=== PATIENT | female | born 1995 | race Caucasian/White ===

== ENCOUNTER 2022-01-21 09:05 | Emergency (ER) | payer BC, SELFPAY ==
[2022-01-21 09:35] VITALS: BP 126/73; PULSE 73; RESP 18; TEMP 37.3; O2SAT 99
--- NOTE | 2022-01-21 09:51 | ED.URI ---
HPI - URI/Sore Throat General Chief Complaint: Upper Respiratory Infection Stated Complaint: Sinus Congestion/Sore Throat Time Seen by Provider: 01/21/22 09:53 Source: patient and RN notes reviewed Mode of arrival: ambulatory Limitations: no limitations History of Present Illness HPI Narrative: 26-year-old female presented for complaint of sinus pressure and congestion and cannot pull in enough air with left sore throat and lymph node swelling. Endorses nausea and vomiting of watery phlegm yesterday. She has a history of asthma. She has been using her albuterol inhaler more frequently as needed. She was smoking a pack per day and now is vaping. Endorses taking unknown antibiotic for busted blood vessel in the right ear. endorses feeling dizzy and hot when moving too quickly. Denies wheezing, fever, chills. Vaccinated for Covid, not vaccinated flu. MD elicited complaint: cough Related Data Allergies Allergy/AdvReac Type Severity Reaction Status Date / Time ibuprofen Allergy Swelling Verified 01/21/22 09:46 of Lip/Tongue/Throat Review of Systems Review of Systems: CONSTITUTIONAL: Denies malaise, chills, sweats, fever EYES: Denies visual changes, redness, or discharge ENT: Reports rhinorrhea, congestion, sinus pain, otalgia, sore throat CARDIOVASCULAR: Denies chest pain, palpitations, edema RESPIRATORY: Reports cough, post nasal drainage, dyspnea GASTROINTESTINAL: Denies abdominal pain, nausea, vomiting, diarrhea SKIN: Denies rash or itching MUSCULOSKELETAL: denies myalgia NEUROLOGIC: Denies headache PMFSH Past Medical History Medical History Allergic asthma Deviated septum ZHAO (generalized anxiety disorder) PTSD (post-traumatic stress disorder) Surgical History Surgical History H/O nasal septoplasty Family History Family History Mother Hypertension Social History Social History Social History: Single Years smoked: 4 Smoking status: Current every day smoker Tobacco type: cigarettes Second hand tobacco smoke exposure: Yes Alcohol intake: current Alcohol use details: Rarely Substance use: current Substance use type: marijuana Additional living arrangements comments: Pt lives with her fiance Gender identity (if verbalized by the patient): Female Exam Narrative: GENERAL: Ill-appearing, nontoxic HEAD: Normocephalic EYES: conjunctivae clear ENT: Mucous membranes moist. TM pearly doll with dull light reflex bilaterally; no tragal tenderness. Oropharynx erythematous without lesions or exudate, tonsils absent, no drooling, no hoarseness, no trismus, uvula midline. No tripod positioning, muffled voice, soft palate or pharyngeal wall bulging NECK: Supple. No lymphadenopathy CHEST: Clear to auscultation, breath sounds equal. No wheezing, rhonchi, rales, or stridor. No respiratory distress, speaks in full sentences. HEART: Regular rate and rhythm. No murmur heard. SKIN: Warm, dry, no rash. NEURO: Alert and oriented x3. PSYCH: Normal mood and affect Course Course Emergency Course: Patient is aware of diagnosis, understands and agrees to treatment plan. Anticipatory guidance given. Patient agrees to follow-up as directed and is aware of reasons to seek care at the emergency department. Portions of this record may have been created with voice recognition software Level of Care: Express Care Visit Vital Signs Vital signs: Vital Signs Temperature 99.1 F 01/21/22 09:35 Pulse Rate 73 01/21/22 09:35 Respiratory Rate 18 01/21/22 09:35 Blood Pressure 126/73 01/21/22 09:35 Pulse Oximetry 99 01/21/22 09:35 Temperature 99.1 F 01/21/22 09:35 Pulse Rate 73 01/21/22 09:35 Respiratory Rate 18 01/21/22 09:35 Blood Pressure 12
== END 2022-01-21 10:08 | disposition home or self-care (01) ==
PROVIDERS: Emergency Provider Nurse Practitioner Family; PCP Family Medicine
DX: J30.2 Other seasonal allergic rhinitis (principal); J45.909 Unspecified asthma, uncomplicated; F17.290 Nicotine dependence, other tobacco product, uncomplicated
CPT/HCPCS: 99213; G0463

== ENCOUNTER 2022-07-04 11:55 | Emergency (ER) | payer BC, SELFPAY ==
[2022-07-04 12:07] VITALS: BP 122/60; PULSE 75; RESP 20; TEMP 36.5; O2SAT 99
--- NOTE | 2022-07-04 12:53 | ED.DIZZY ---
HPI - Dizziness General Chief Complaint: Dizziness Stated Complaint: nausous, lightheaded, abdominal pain Time Seen by Provider: 07/04/22 12:53 Source: patient, RN notes reviewed and old records reviewed Mode of arrival: ambulatory Limitations: no limitations History of Present Illness HPI Narrative: 27 year old female who [facility] with complaints of feeling like she was going to pass out today at 0830, states became sweaty and felt like she was going to pass out, did not fall or loose consciousness. 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 Patient reports that she has been nauseated and also has had intermittent lower abdominal cramping for the past 2 weeks with feelings of dizziness. Patient denies any vomiting or diarrhea, reports no sore throat, headache, sinus congestion or drainage or any other symptoms. MD elicited complaint: dizziness, lightheadedness and other (nausea and some intermittent lower abdomen cramping.) Pertinent past history: other (7 weeks ) Related Data Allergies Allergy/AdvReac Type Severity Reaction Status Date / Time ibuprofen Allergy Swelling Verified 01/21/22 09:46 of Lip/Tongue/Throat Review of Systems Review of Systems: CONSTITUTIONAL: Denies fever, chills, or sweats. EYES: Denies visual changes, redness, or discharge. ENT: Denies rhinorrhea, congestion, sore throat, or otalgia. CARDIOVASCULAR: Denies chest pain, palpitations, or edema. RESPIRATORY: Denies cough or dyspnea. GASTROINTESTINAL: Denies abdominal pain,+ nausea,no vomiting, or diarrhea.Reports some lower abdomen cramping for 2 weeks intermittently GENITOURINARY: Denies dysuria or hematuria. SKIN: Denies rash or itching. MUSCULOSKELETAL: Denies back pain, joint pain, or myalgia. NEUROLOGIC: Denies headache, numbness, or weakness, positive for dizziness PSYCHIATRIC: Positive for anxiety or depression. [facility] Past Medical History Medical History (Updated 07/07/22 @ 12:11 by Romana Enamorado NP) Allergic asthma Anemia Deviated septum ZHAO (generalized anxiety disorder) PTSD (post-traumatic stress disorder) Surgical History Surgical History (Updated 07/07/22 @ 12:15 by Romana Eanmorado NP) H/O nasal septoplasty History of tonsillectomy and adenoidectomy Family History Family History Mother Hypertension Social History Social History Social History: Single Years smoked: 4 Smoking status: Current every day smoker Tobacco type: cigarettes Second hand tobacco smoke exposure: Yes Alcohol intake: current Alcohol use details: Rarely Substance use: current Substance use type: marijuana Additional living arrangements comments: Pt lives with her fiance Gender identity (if verbalized by the patient): Female Comments At time of signature, agree with nursing past medical, surgical, social and family history. There is no relevant family history pertinent to the presenting complaint Exam Narrative: GENERAL: Well-appearing, well-nourished, and in no acute distress. HEAD: Normocephalic, atraumatic. EYES: PERRLA and EOMI. ENT: Nares clear, no rhinorrhea or epistaxis. Mucous membranes moist. TM's normal with good light reflex, throat pink with no lesions tonsils absent NECK: Supple. no lymphadenopathy CHEST: Clear to auscultation. No respiratory distress.normal with good light reflex, throat pink with no lesions or swelling tonsils absent HEART: Regular rate and rhythm. No murmur heard. Normal peripheral pulses.SAO2 99% on room air ABDOMEN: Soft, nontender on palpation, nondistended, normal active bowel sounds.denies constipation or any diarrhea, no flank pain noted EXTREMITIES: Normal range of motion. No edema. SKIN: Warm, dry, no rash. NEURO: No focal deficits. Alert and oriented x3. Course Course Level of
[2022-07-04 13:08] VITALS: BP 122/70; PULSE 75
[2022-07-04 13:14] VITALS: BP 121/55; PULSE 79
[2022-07-04 13:20] VITALS: BP 124/70; PULSE 83
== END 2022-07-04 13:50 | disposition home or self-care (01) ==
PROVIDERS: Emergency Provider Registered Nurse; PCP Family Medicine
DX: O90.89 Other complications of the puerperium, not elsewhere classified (principal); R42 Dizziness and giddiness; O21.9 Vomiting of pregnancy, unspecified; Z3A.01 Less than 8 weeks gestation of pregnancy; O99.281 Endocrine, nutritional and metabolic diseases complicating pregnancy, first trimester; E86.0 Dehydration; O99.331 Smoking (tobacco) complicating pregnancy, first trimester; F17.210 Nicotine dependence, cigarettes, uncomplicated; O99.511 Diseases of the respiratory system complicating pregnancy, first trimester; J45.909 Unspecified asthma, uncomplicated
CPT/HCPCS: 81003; 81025; 99213; G0463

== ENCOUNTER 2023-02-26 22:29 | Inpatient (IN) | payer OTHER, SELFPAY ==
[2023-02-26 23:14] VITALS: BMI 32.7
[2023-02-26 23:15] LABS: Basophils Absolute Auto 0.1 K/mm3 (0.0-0.1); Basophils Percent Auto 0.3 % (0.2-1.2); Eosinophils Percent Auto 0.2 % (0-4.4); Hematocrit 42.2 % (37.0-47.0); Hemoglobin 14.2 g/dL (12.0-15.0); Immature Granulocyte Absolute 0.05 K/mm3 (0.00-0.031); Immature Granulocyte Percent A 0.3 % (0-0.5); Lymphocytes Absolute Auto 2.22 K/mm3 (0.9-3.2); Lymphocytes Percent Auto 13.1 % (18.3-44.2); Mean Corpuscular HGB Conc 33.6 g/dl (32-36); Mean Corpuscular Hemoglobin 29.4 pg (26-34); Mean Corpuscular Volume 87.4 fl (80-100); Mean Platelet Volume 10.9 fl (7.4-10.4); Monocytes Percent Auto 5.8 % (2.6-8.5); Neutrophils Absolute Auto 13.7 K/mm3 (1.3-6.7); Neutrophils Percent Auto 80.3 % (45.5-73.1); Platelet Count Result 241 k/mm3 (150-375); Red Blood Count 4.83 M/mm3 (4.2-5.4)
[2023-02-26 23:33] VITALS: BP 125/75; PULSE 64
[2023-02-26 23:38] VITALS: BP 139/82; PULSE 64
[2023-02-26 23:48] VITALS: BP 119/73; PULSE 64
[2023-02-26] MEDS: DINOPROSTONE 10 MG VAG INSERT VAGINAL (23:48)
[2023-02-26 23:50] VITALS: TEMP 36.3
[2023-02-27] VITALS (59 sets, daily range): BP systolic 75–147; BP diastolic 45–111; PULSE 47–176; RESP 14–20; TEMP 36.2–37.3; O2SAT 93–100
[2023-02-27] MEDS: ONDANSETRON INJ 4 MG/2 ML VIAL IV PUSH (00:25)
--- NOTE | 2023-02-27 01:08 | WPDANESEPPF ---
Anes - Initial Pre Proc Eval Procedure: Labor Epidural Date/Time: 02/27/23 01:08 Surgeon: Katie Hernandez MD Pre Op Diagnosis: Labor Pain Pre Op Diagnosis: IOL Patient Data Age: 27 Gender: F Height: 1.63 m Weight: 86.4 kg Last Vital Signs Temp 36.3 C L 02/26/23 23:50 Pulse 54 L 02/27/23 01:01 BP 136/80 02/27/23 01:01 Allergies Allergy/AdvReac Type Severity Reaction Status Date / Time ibuprofen Allergy Swelling Verified 02/20/23 12:34 of Lip/Tongue/Throat Home Medications Medication Instructions Recorded Confirmed Type prenat.vits,mindi,moh-nlqh-buoqn 1 tablet PO DAILY 02/20/23 02/20/23 History sertraline 50 mg tablet 50 mg PO DAILY 02/20/23 02/20/23 History albuterol sulfate 90 mcg/actuation 1 inh inhalation PRN 02/26/23 02/26/23 History aerosol inhaler (ProAir HFA) Laboratory Tests 02/26/23 23:10 WBC 17.0 H K/mm3 (4.5-10.0) RBC 4.83 M/mm3 (4.2-5.4) Hgb 14.2 g/dL (12.0-15.0) Hct 42.2 % (37.0-47.0) MCV 87.4 fl (80-100) MCH 29.4 pg (26-34) MCHC 33.6 g/dl (32-36) RDW 13.0 % (11.5-14.5) Plt Count 241 k/mm3 (150-375) MPV 10.9 H fl (7.4-10.4) Immature Gran % (Auto) 0.3 % (0-0.5) Neut % (Auto) 80.3 H % (45.5-73.1) Lymph % (Auto) 13.1 L % (18.3-44.2) [place] % (Auto) 5.8 % (2.6-8.5) Eos % (Auto) 0.2 % (0-4.4) Baso % (Auto) 0.3 % (0.2-1.2) Lymph # (Auto) 2.22 K/mm3 (0.9-3.2) [place] # (Auto) 1.0 H K/mm3 (0.1-0.6) Eos # (Auto) 0.0 K/mm3 (0-0.3) Baso # (Auto) 0.1 K/mm3 (0.0-0.1) Abs Immat Gran (auto) 0.05 H K/mm3 (0.00-0.031) Absolute Neuts (auto) 13.7 H K/mm3 (1.3-6.7) Absolute Nucleated RBC 0.0 K/mm3 (0.0-0.012) Nucleated RBC % 0.0 % (0.0-0.2) RPR Pending Blood Type A Positive Antibody Screen Negative Patient hx anesthesia problems: none Family hx anesthesia problems: none Results Review: All pre-operative results and documents have been reviewed as part of the pre-operative evaluation. [facility] Past Medical History Medical History Allergic asthma Anemia Deviated septum ZHAO (generalized anxiety disorder) PTSD (post-traumatic stress disorder) Surgical History Surgical History H/O nasal septoplasty History of tonsillectomy and adenoidectomy Family History Family History Mother Hypertension Arthritis Degenerative disc disease Depression Grandparent Skin cancer (melanoma) Arthritis Rosacea Father Arthritis Depression Social History Social History Social History: Single Years smoked: 4 Smoking status: Former smoker Tobacco type: cigarettes Second hand tobacco smoke exposure: No Smoking end date: 09/28/22 Alcohol intake: current Alcohol use details: Rarely Substance use: current Substance use type: marijuana Last use: 02/20/23 Lack of Transportation: No Lack of Food: Never True Current Housing: I Have Housing Concerned About Future Housing: No Difficulty Paying Gas/Electric Bills: No Difficulty Paying for Meds: No Currently Unemployed: No Education: High School Diploma/GED Difficulty w/ Childcare or Family Care: No Living arrangements: with family Additional living arrangements comments: Pt lives with her fiance Occupation/Education: unemployed Gender identity (if verbalized by the patient): Female Spiritual care concerns: No Anes - Eval Final PreProcedure Day of Procedure 02/27/23 01:08 Patient weight: normal Airway: Mallampati scale class II Neurological: alert and oriented ASA classification: II Emergent: no Anesthetic plan: proceed Anesthesia type and monitoring: regional epidural and standard monit
[2023-02-27] MEDS: LACTATED RINGERS 1,000 ML 125 ML IV CONT ×3 (01:55→06:40)
[2023-02-27] MEDS: PROMETHAZINE HCL 25 MG/ML AMPUL 12.5 MG IV PUSH (04:10)
--- NOTE | 2023-02-27 06:32 | PM.IMHP ---
H&P: HPI History of Present Illness Date/Time: 02/27/23 06:32 Chief Complaint: induction of labor Narrative: Linnea was a scheduled elective IOL at 0001 this am. uncomplicated except by asthma, anxiety on zoloft, and both of them CF carriers. Yesterday afternoon she presented for decreased FM and had a reactive NST and felt movement so chose to be DCed home and return. Cervidil was placed this am, but was pulled a couple hours later for minimal variability and late decels. They resolved but then returned. I called around 0600 for an update on my way in this am to be told there was again minimal variability and lates. Review of Systems Review of Systems: All systems reviewed & are unremarkable except as noted in HPI and below PMFSH Past Medical History Medical History Allergic asthma Anemia Deviated septum ZHAO (generalized anxiety disorder) PTSD (post-traumatic stress disorder) Surgical History Surgical History H/O nasal septoplasty History of tonsillectomy and adenoidectomy Family History Family History Mother Hypertension Arthritis Degenerative disc disease Depression Grandparent Skin cancer (melanoma) Arthritis Rosacea Father Arthritis Depression Social History Social History Social History: Single Years smoked: 4 Smoking status: Former smoker Tobacco type: cigarettes Second hand tobacco smoke exposure: No Smoking end date: 09/28/22 Alcohol intake: current Alcohol use details: Rarely Substance use: current Substance use type: marijuana Last use: 02/20/23 Lack of Transportation: No Lack of Food: Never True Current Housing: I Have Housing Concerned About Future Housing: No Difficulty Paying Gas/Electric Bills: No Difficulty Paying for Meds: No Currently Unemployed: No Education: High School Diploma/GED Difficulty w/ Childcare or Family Care: No Living arrangements: with family Additional living arrangements comments: Pt lives with her fiance Occupation/Education: unemployed Gender identity (if verbalized by the patient): Female Spiritual care concerns: No Meds Home Medications and Allergies Home Medications Medication Instructions Recorded Confirmed Type prenat.vits,mindi,och-uryh-loxne 1 tablet PO DAILY 02/20/23 02/20/23 History sertraline 50 mg tablet 50 mg PO DAILY 02/20/23 02/20/23 History albuterol sulfate 90 mcg/actuation 1 inh inhalation PRN 02/26/23 02/26/23 History aerosol inhaler (ProAir HFA) Allergies Allergy/AdvReac Type Severity Reaction Status Date / Time ibuprofen Allergy Swelling Verified 02/20/23 12:34 of Lip/Tongue/Throat Vital Signs Vital Signs - 24 hr 02/26/23 23:33 02/26/23 23:38 02/26/23 23:48 Temperature Pulse Rate 64 64 64 Blood Pressure 125/75 139/82 119/73 02/26/23 23:50 02/27/23 00:01 02/27/23 00:16 Temperature 97.3 F L Pulse Rate 176 H 56 L Blood Pressure 125/73 120/80 02/27/23 00:32 02/27/23 00:46 02/27/23 01:01 Temperature Pulse Rate 78 48 L 54 L Blood Pressure 118/53 L 125/68 136/80 02/27/23 01:16 02/27/23 01:31 02/27/23 01:46 Temperature Pulse Rate 57 L 47 L 58 L Blood Pressure 118/75 117/89 128/65 02/27/23 02:00 02/27/23 04:00 02/27/23 06:21 Temperature 97.1 F L 97.7 F 97.7 F Pulse Rate Blood Pressure Exam Const: General: no acute distress Resp: Effort & Inspection: normal respiratory effort Auscultation: clear to auscultation bilaterally Cardio: Rate: regular rate Rhythm: regular rhythm GI: GI Palp: Yes Soft to palpation Extrem: General: normal to inspection H&P: Results Labs Labs: Short CBC 02/26/23 Range/Units 23:10 WBC 17.0 H (4.5-10.0) K/mm3
--- NOTE | 2023-02-27 06:32 | WPDANESEPPF ---
Anes - Initial Pre Proc Eval Procedure: Operation Date: 02/27/23 06:30 Proposed Procedures p Section - Katie Hernandez MD Operation Date: 02/27/23 06:30 Proposed Procedures p Section - Katie Hernandez MD Date/Time: 02/27/23 06:32 Surgeon: Katie Hernandez MD Pre Op Diagnosis: Non reassuring heart tones Pre Op Diagnosis: IOL Patient Data Age: 27 Gender: F Height: 1.63 m Weight: 86.4 kg Last Vital Signs Temp 36.5 C 02/27/23 06:21 Pulse 58 L 02/27/23 01:46 BP 128/65 02/27/23 01:46 Allergies Allergy/AdvReac Type Severity Reaction Status Date / Time ibuprofen Allergy Swelling Verified 02/20/23 12:34 of Lip/Tongue/Throat Home Medications Medication Instructions Recorded Confirmed Type prenat.vits,mindi,vbk-fzbi-trban 1 tablet PO DAILY 02/20/23 02/20/23 History sertraline 50 mg tablet 50 mg PO DAILY 02/20/23 02/20/23 History albuterol sulfate 90 mcg/actuation 1 inh inhalation PRN 02/26/23 02/26/23 History aerosol inhaler (ProAir HFA) Laboratory Tests 02/26/23 23:10 WBC 17.0 H K/mm3 (4.5-10.0) RBC 4.83 M/mm3 (4.2-5.4) Hgb 14.2 g/dL (12.0-15.0) Hct 42.2 % (37.0-47.0) MCV 87.4 fl (80-100) MCH 29.4 pg (26-34) MCHC 33.6 g/dl (32-36) RDW 13.0 % (11.5-14.5) Plt Count 241 k/mm3 (150-375) MPV 10.9 H fl (7.4-10.4) Immature Gran % (Auto) 0.3 % (0-0.5) Neut % (Auto) 80.3 H % (45.5-73.1) Lymph % (Auto) 13.1 L % (18.3-44.2) [place] % (Auto) 5.8 % (2.6-8.5) Eos % (Auto) 0.2 % (0-4.4) Baso % (Auto) 0.3 % (0.2-1.2) Lymph # (Auto) 2.22 K/mm3 (0.9-3.2) [place] # (Auto) 1.0 H K/mm3 (0.1-0.6) Eos # (Auto) 0.0 K/mm3 (0-0.3) Baso # (Auto) 0.1 K/mm3 (0.0-0.1) Abs Immat Gran (auto) 0.05 H K/mm3 (0.00-0.031) Absolute Neuts (auto) 13.7 H K/mm3 (1.3-6.7) Absolute Nucleated RBC 0.0 K/mm3 (0.0-0.012) Nucleated RBC % 0.0 % (0.0-0.2) RPR Pending Blood Type A Positive Antibody Screen Negative Patient hx anesthesia problems: none Family hx anesthesia problems: none Results Review: All pre-operative results and documents have been reviewed as part of the pre-operative evaluation. [facility] Past Medical History Medical History Allergic asthma Anemia Deviated septum ZHAO (generalized anxiety disorder) PTSD (post-traumatic stress disorder) Surgical History Surgical History H/O nasal septoplasty History of tonsillectomy and adenoidectomy Family History Family History Mother Hypertension Arthritis Degenerative disc disease Depression Grandparent Skin cancer (melanoma) Arthritis Rosacea Father Arthritis Depression Social History Social History Social History: Single Years smoked: 4 Smoking status: Former smoker Tobacco type: cigarettes Second hand tobacco smoke exposure: No Smoking end date: 09/28/22 Alcohol intake: current Alcohol use details: Rarely Substance use: current Substance use type: marijuana Last use: 02/20/23 Lack of Transportation: No Lack of Food: Never True Current Housing: I Have Housing Concerned About Future Housing: No Difficulty Paying Gas/Electric Bills: No Difficulty Paying for Meds: No Currently Unemployed: No Education: High School Diploma/GED Difficulty w/ Childcare or Family Care: No Living arrangements: with family Additional living arrangements comments: Pt lives with her fiance Occupation/Education: unemployed Gender identity (if verbalized by the patient): Female Spiritual care concerns: No Anes - Eval Final PreProcedure Day of Procedure 02/27/23 06:32 Patient weight: normal
--- NOTE | 2023-02-27 06:35 | WPDHPUPDATE1 ---
History and Physical Update Update Date/Time: 02/27/23 06:35 History and Physical has been reviewed, including an updated exam of the patient. There are NO changes in the patient's condition. Risks, benefits, and alternatives have been discussed and questions answered. Patient agrees to proceed with procedure.
[2023-02-27] MEDS: ceFAZolin 2 GM/D5W 50 ML 2 GM/50 ML BAG IVPB (06:36)
--- NOTE | 2023-02-27 07:26 | P.PCNOB_ITS ---
OB - Delivery Note Procedure Delivery date: 02/27/23 Procedure: Procedures Operation Date: 02/27/23 06:30 <No data on this case meets the specified criteria> Operation Date: 02/27/23 06:30 <No data on this case meets the specified criteria> primary low transverse section Intrapartal Events: Decelerations and Non-Reassuring Status Induction method: Per Cervidil Protocol Delivery monitor: External FHT and External Uterine Route of delivery: Prior to decision for section, ACOG/SMFM labor guidelines were considered and discussed with the patient and staff. Decision made to proceed with the section.: Yes Specimen: Yes (placenta) Quantitative Blood Loss (ml): 585 Anesthesia type: Spinal Disposition: Floor Complications: none Narrative: Preop Dx: IUP 39.4, intolerance of labor Post op Dx: same, thick meconium The patient was taken to the OR and received spinal anesthesia. She was placed in dorsal supine position with left lateral tilt. SCDs and lugo were placed. She was prepped and draped in the normal sterile fashion. A Pfannensteil skin incision was made and carried through to the underlying layer of fascia. The fascia was incised in the midline and then extended laterally using Jeronimo scissors. The muscles were in the midline and the peritoneum was entered bluntly. The peritoneal incision was extended inferiorly and superiorly with care to avoid the bladder. The bladder blade was then inserted, the vesicouterine peritoneum was grasped, incised with Metzenbaum scissors, and a bladder flap created. The bladder blade was reinserted. A low transverse uterine incision was made with a scalpel and extended bluntly. AROM was performed and fluid was noted to have thick meconium. The head was delivered, followed by the remainder of the baby. The baby's oropharynx was suctioned. After 30 seconds, the cord was clamped and cut and the infant was handed off. Cord blood was obtained and the placenta was then removed manually. The uterus was exteriorized. A moist lap sponge was used to curette the endometrium. The uterine incision was then closed with one layer of 0-Vicryl in a running, locking fashion. Good hemostasis was noted. The posterior cul de sac was irrigated with normal saline and cleared of all clot and debris. The uterus was returned to the abdomen. Both lateral gutters were then irrigated. The rectus muscles were inspected and found to be hemostatic. The fascia was reapproximated using 0-Vicryl in running fashion. The subcutaneous tissue was irrigated with normal saline and made hemostatic with Bovie electrocautery. The skin was then closed with absorbable pricila. Steri strips and a bandage were applied. The uterus was evacuated. The patient tolerated the procedure very well. All counts were correct. She was taken to the recovery room in good condition. [place] Baby Date of : 02/27/23 Time of : 07:00 Weeks of gestation at delivery: 39 Infant gender: Female Weight (pounds): 7 Weight (ounces): 1 presentation: vertex Placenta delivery description: Manual Removal Cord Vessel Description: 3 Vessels and Clamped/Cut score one minute: 9 score five minutes: 9
[2023-02-27 07:46] LABS: Rapid Plasma Reagin Non-Reactive (NonReactive)
[2023-02-27] MEDS: MORPHINE SULFATE (*CRX) 2 MG/ML INJ IV PUSH (09:41)
[2023-02-27] MEDS: HYDROcodone/acetaminophen (*CRX) 5-325 MG TABLET 1 TAB PO (20:09)
[2023-02-28 00:35] VITALS: BP 133/84; PULSE 63; RESP 18; TEMP 36.8
[2023-02-28] MEDS: HYDROcodone/acetaminophen (*CRX) 10-325 MG TABLET 1 TAB PO ×6 (00:41→20:37)
[2023-02-28 04:30] VITALS: BP 126/77; PULSE 61; RESP 16; TEMP 36.7
[2023-02-28 04:55] LABS: Basophils Absolute Auto 0.1 K/mm3 (0.0-0.1); Basophils Percent Auto 0.6 % (0.2-1.2); Eosinophils Absolute Auto 0.1 K/mm3 (0-0.3); Eosinophils Percent Auto 0.6 % (0-4.4); Hematocrit 37.3 % (37.0-47.0); Hemoglobin 12.2 g/dL (12.0-15.0); Immature Granulocyte Absolute 0.09 K/mm3 (0.00-0.031); Immature Granulocyte Percent A 0.7 % (0-0.5); Lymphocytes Absolute Auto 2.23 K/mm3 (0.9-3.2); Lymphocytes Percent Auto 16.5 % (18.3-44.2); Mean Corpuscular HGB Conc 32.7 g/dl (32-36); Mean Corpuscular Hemoglobin 29.6 pg (26-34); Mean Corpuscular Volume 90.5 fl (80-100); Monocytes Absolute Auto 1.1 K/mm3 (0.1-0.6); Monocytes Percent Auto 8.1 % (2.6-8.5); Neutrophils Percent Auto 73.5 % (45.5-73.1); Platelet Count Result 206 k/mm3 (150-375); Red Blood Count 4.12 M/mm3 (4.2-5.4); Red Cell Distribution Width 13.1 % (11.5-14.5); White Blood Count 13.5 K/mm3 (4.5-10.0)
[2023-02-28 07:34] VITALS: BP 130/61; PULSE 62; RESP 18; TEMP 36.6; O2SAT 99
--- NOTE | 2023-02-28 08:14 | PM.OBPNVD ---
OB - PN: Subj Subjective Date/time seen: 02/28/23 08:14 Patient comments: no complaints and pain well controlled baby status: doing well [place] feeding status: exclusively breast feeding Narrative: POD 1 from primary CS. Doing well. Normal lochia. Eating, ambulating, lugo out. OB - PN: Obj Data Labs 02/28/23 04:29 Labs: Laboratory Results - last 24 hr 02/28/23 04:29 WBC 13.5 H RBC 4.12 L Hgb 12.2 Hct 37.3 MCV 90.5 MCH 29.6 MCHC 32.7 RDW 13.1 Plt Count 206 MPV 11.0 H Immature Gran % (Auto) 0.7 H Neut % (Auto) 73.5 H Lymph % (Auto) 16.5 L [place] % (Auto) 8.1 Eos % (Auto) 0.6 Baso % (Auto) 0.6 Lymph # (Auto) 2.23 [place] # (Auto) 1.1 H Eos # (Auto) 0.1 Baso # (Auto) 0.1 Abs Immat Gran (auto) 0.09 H Absolute Neuts (auto) 10.0 H Absolute Nucleated RBC 0.0 Nucleated RBC % 0.0 OB - PN A/P Plan day: 1 Plan: routine care Time Spent With Patient Time: Total time spent is greater than 50% in coordination of care (as documented) at patient's floor/unit and/or counseling patient: Exam Narrative: NAD abdomen soft, appropriately tender, incision bandaged Extremities nontender with 1+ edema
--- NOTE | 2023-02-28 08:44 | PC.NURSE ---
On 02/28/23, the student, Amy Berg, provided care and completed [facility] documentation on this patient. I have reviewed the student's documentation and agree with the findings.
[2023-02-28] MEDS: MULTIVIT/MIN/PREN/FOL AC/IRON TABLET 1 TAB PO (08:45)
[2023-02-28] MEDS: SERTRALINE HCL 50 MG TABLET PO (08:45)
[2023-02-28] MEDS: DOCUSATE SODIUM 100 MG CAPSULE PO ×2 (08:45→20:37)
--- NOTE | 2023-02-28 10:33 | PC.NURSE ---
[id number] Introductions were made, then consulted with patient to assess needs related to . Mother led the conversation with her?plans to feed?her infant, the?experience so far and states she is latching on her own without pain. Reminded parents to use good handwashing technique to prevent infection. Mother is feeding appropriately for growth of and understands stimulating to eat if needed. Infant has had appropriate feedings in the last 24 hours meets the outcomes for weight, output and jaundice at this time. Mother states she is confident to continue effectively breastfeed her at home, when to call for assistance and denies any additional assistance or education at this time. Reinforced understanding of milk production, transition of milk, signs of adequate intake, transition of stool, prevention/relief of engorgement, responsive watching for feeding cues, the different methods of stimulating to breastfeed on demand (2-3 hours) after the start of the last feeding, community resources, medication information reviewed per [facility] and when to call a provider using the resource of the mom and baby guide, and name written on the white board. Parents voiced understanding of the education shared. Reported to the primary RN. [id number] Purposefully rounded to assess needs related to Primary RN states mother has questions related to pumping. Mother attempts to latch her infant, however; doesn't latch at this time. Mother states finished feeding about 5 minutes ago and infant is passing gas at this time. assistance offered if doesn't latch, there's misshaped nipples after a feeding, pain with a latch or if parents have any other questions or concerns. Reported to the Primary RN.
--- NOTE | 2023-02-28 12:08 | WPDANLDNPN2 ---
Anes-Prog Note L&D-Neuraxial Date/Time: 02/28/23 12:08 Patient feedback: Patient satisfied with post-operative pain management.
--- NOTE | 2023-02-28 12:09 | WPDANLDPN2 ---
Anes-Prog Note L&D Date/Time: 02/28/23 12:09 Neuro status: Neuro function grossly intact. Vital Signs: Last Vital Signs Temp 36.6 C 02/28/23 07:34 Pulse 62 02/28/23 07:34 Resp 18 02/28/23 07:34 BP 130/61 02/28/23 07:34 Pulse Ox 99 02/28/23 07:34 O2 Del Method Room Air 02/28/23 08:45 Pain score (VAS): 0 I/O: Intake & Output 02/27/23 02/28/23 02/28/23 23:59 07:59 15:59 Intake Total 1840 1500 Output Total 2600 2250 Balance -760 -750 Patient feedback: Patient satisfied with anesthetic care.
[2023-02-28] MEDS: SIMETHICONE 80 MG TAB.CHEW PO (14:46)
[2023-02-28 16:33] VITALS: BP 119/62; PULSE 70; RESP 16; TEMP 37; O2SAT 100
[2023-02-28 19:45] VITALS: BP 116/79; PULSE 106; RESP 20; TEMP 36.9
[2023-03-01] MEDS: HYDROcodone/acetaminophen (*CRX) 5-325 MG TABLET 1 TAB PO ×4 (03:54→20:48)
--- NOTE | 2023-03-01 07:38 | PM.OBPNVD ---
OB - PN: Subj Subjective Date/time seen: 03/01/23 07:38 Patient comments: no complaints, pain well controlled, tolerating diet and flatus present OB - PN: Obj Data Labs 02/28/23 04:29 OB - PN A/P Plan day: 1 Comments: Post Op LTCS - no problems, routine recovery Time Spent With Patient Time: Total time spent is greater than 50% in coordination of care (as documented) at patient's floor/unit and/or counseling patient: Exam Const: General: cooperative, healthy appearing, comfortable and no acute distress Resp: Auscultation: no crackles, no rales, no rhonchi and no wheezes Cardio: Rhythm: regular rhythm Heart sounds: no click and no murmurs GI: Inspection: non-distended Auscultation: normal bowel sounds Extrem: General: normal to inspection, no pedal edema and no calf tenderness
[2023-03-01 08:36] VITALS: BP 127/69; PULSE 68; RESP 16; TEMP 36.8; O2SAT 100
[2023-03-01] MEDS: DOCUSATE SODIUM 100 MG CAPSULE PO ×2 (09:57→15:51)
[2023-03-01] MEDS: MULTIVIT/MIN/PREN/FOL AC/IRON TABLET 1 TAB PO (09:57)
[2023-03-01] MEDS: SERTRALINE HCL 50 MG TABLET PO (09:57)
[2023-03-01 20:50] VITALS: BP 122/55; PULSE 92; RESP 18; TEMP 36.4
[2023-03-02] MEDS: HYDROcodone/acetaminophen (*CRX) 5-325 MG TABLET 1 TAB PO ×3 (00:26→11:58)
--- NOTE | 2023-03-02 07:08 | PM.OBPNVD ---
OB - PN: Subj Subjective Date/time seen: 03/02/23 07:08 Patient comments: no complaints, pain well controlled, incisional pain, tolerating diet and flatus present OB - PN: Obj Data Labs 02/28/23 04:29 OB - PN A/P Plan day: 3 Plan: routine care, discharge home and other Comments: Incision check in one week. Given precautions Time Spent With Patient Time: Total time spent is greater than 50% in coordination of care (as documented) at patient's floor/unit and/or counseling patient: Exam Const: General: comfortable, no acute distress and alert Resp: Effort & Inspection: normal respiratory effort Auscultation: no crackles, no rales and no rhonchi Cardio: Rate: regular rate Heart sounds: no click, no murmurs and no rubs GI: Inspection: non-distended GI Palp: No Tenderness to palpation present (GI) Auscultation: normal bowel sounds Other: Incision - CDI Extrem: General: normal to inspection, no pedal edema and no calf tenderness
--- NOTE | 2023-03-02 07:12 | PM.OBDSVD ---
DS: Admitting Diagnosis Discharge Date 03/02/23 Admitting Diagnosis term OB - DS: Summary OB Procedures : None OB Procedures Intrapartum: OB Procedures: : None Peripartum Data Procedures: Procedures Operation Date: 02/27/23 06:30 <No data on this case meets the specified criteria> Operation Date: 02/27/23 06:30 Actual Procedure Side Surgeon p Section Bilateral Katie Hernandez MD Time Spent with Patient Time attestation: Total time spent providing and/or coordinating discharge services: DS: Data Data Completed and Pending Pending studies at discharge: Pending at discharge 02/27/23 17:54 Surgical [PTH] Routine Discharge Plan Discharge Discharging Clinician: Azeem Youngblood Patient Disposition: Home, Self-Care Activity: pelvic rest Diet: regular Patient Instructions: Antibiotic Form Stand Alone Forms: General Discharge Information Follow-up/Referrals: Azeem Youngblood MD [Physician] - Discharge Medications: New hydrocodone-acetaminophen 5-325 mg tablet 1 - 2 tablet PO Q6H PRN (Reason: pain) Qty: 25 0RF Continued sertraline 50 mg Tablet 50 mg PO DAILY #2 Tablet 1 tablet PO DAILY albuterol sulfate [ProAir HFA] 90 mcg/actuation HFA aerosol inhaler 1 inh inhalation PRN Date of admission: 02/26/23 22:29 Primary Care Provider: Kimi So Admitting Provider: Katie Hernandez Attending physician on admission: Katie Hernandez Condition: Stable
[2023-03-02 08:10] VITALS: BP 128/70; PULSE 78; RESP 18; TEMP 36.7; O2SAT 98
[2023-03-02] MEDS: DOCUSATE SODIUM 100 MG CAPSULE PO (08:40)
[2023-03-02] MEDS: MULTIVIT/MIN/PREN/FOL AC/IRON TABLET 1 TAB PO (08:40)
--- NOTE | 2023-03-02 08:40 | PC.NURSE ---
Patient viewed the discharge video Mother & Baby Care, The First Two Weeks . Patient was given the opportunity and encouraged to ask questions. Patient verbalized understanding of information shared and has been given the mother/baby guide for home reference.
[2023-03-02] MEDS: SERTRALINE HCL 50 MG TABLET PO (08:41)
[2023-03-03 09:28] VITALS: BP 123/86; PULSE 108; RESP 18; TEMP 37.3; O2SAT 98
== END 2023-03-02 12:15 | disposition home or self-care (01) | DRG 788 ==
LOC: ANHLDR 22:48 → ANHOB2 02-28 08:23 → ANHLDR 03-05 09:18 → ANHOB2 03-05 09:18
PROVIDERS: Admitting Provider Obstetrics & Gynecology; PCP Family Medicine; Visit Provider Obstetrics & Gynecology
PROC: 10D00Z1 Extraction of Products of Conception, Low, Open Approach (ICD-10-PCS; CPT 59514; principal; 2023-02-27 06:30)
DX: O76 Abnormality in fetal heart rate and rhythm complicating labor and delivery (principal); O99.52 Diseases of the respiratory system complicating childbirth; J45.909 Unspecified asthma, uncomplicated; O99.344 Other mental disorders complicating childbirth; F41.9 Anxiety disorder, unspecified; O77.0 Labor and delivery complicated by meconium in amniotic fluid; O69.2XX0 Labor and delivery complicated by other cord entanglement, with compression, not applicable or unspecified; Z3A.38 38 weeks gestation of pregnancy; Z37.0 Single live birth; Z87.891 Personal history of nicotine dependence
CPT/HCPCS: 36415; 59025; 85025; 86592; 86850; 86900; 86901; 88307; A9270; J0131; J0690; J2270; J2274; J2405; J2550; J2590; J7120